=== PATIENT | female | born 1945 | race African-American/Black ===

== ENCOUNTER 2018-06-10 18:05 | Emergency (ER) | payer MEDICARE, MEDICAID ==
[~2018-06-10] VITALS: Ht 170.2 cm; Wt 91.0 kg
[2018-06-10] MEDS ORDERED: GABA-531 PO (18:25)
[2018-06-10 20:05] LABS: BASOPHILS % 1.5 % (0.0-2.0); EOSINOPHILS % 2.1 % (0.0-5.0); HEMATOCRIT. 39.3 % (36.0-48.0); LYMPHOCYTES % 42.3 % (20.0-50.0); MEAN CORPUSCULAR HEMOGLOBIN 30.3 pg (28.0-32.0); MEAN CORPUSCULAR VOLUME 91.7 fL (81.0-99.0); MEAN PLATELET VOLUME 8.3 fl (7.4-10.4); MONOCYTES % 11.6 % (2.0-8.0); NEUTROPHILS % 42.5 % (40.0-76.0); PLATELET 172 x1000/uL (130-400); RED BLOOD CELL COUNT 4.28 mill/uL (4.2-5.4); RED CELL DISTRIBUTION WIDTH 14.8 % (11.6-14.6)
[2018-06-10 20:07] LABS: CHLORIDE 109 mEq/L (98-107)
[2018-06-10 20:08] LABS: INR 1.1; PROTHROMBIN TIME 11.5 sec (9.4-11.6)
[2018-06-11 01:18] LABS: CLARITY URINE CLEAR (CLEAR); COLOR URINE YELLOW (YELLOW); KETONES URINE NEGATIVE (NEGATIVE); LEUKOCYTE ESTERASE URINE NEGATIVE (NEGATIVE); NITRITE URINE NEGATIVE (NEGATIVE); OCCULT BLOOD URINE NEGATIVE (NEGATIVE); PH URINE 5.5 (4.5-8.0); PROTEIN URINE NEGATIVE (NEGATIVE); SPECIFIC GRAVITY URINE 1.019 (1.005-1.030); UROBILINOGEN URINE 0.2 E.U./dL (0.2-1.0)
[2018-06-11 05:11] VITALS: BP 165/76
== END 2018-06-11 05:25 | disposition home or self-care (01) ==
LOC: ER 21:24
DX: R53.83 Other fatigue (principal); R06.02 Shortness of breath; R05 Cough; R30.0 Dysuria; J44.9 Chronic obstructive pulmonary disease, unspecified; J06.9 Acute upper respiratory infection, unspecified; I50.9 Heart failure, unspecified; R60.9 Edema, unspecified; I10 Essential (primary) hypertension
CPT/HCPCS: 36415; 71045; 80053; 81003; 83880; 84484; 85025; 85610; 87086; 93005; 99285

== ENCOUNTER 2022-07-09 12:52 | Inpatient (IN) | payer MEDICARE, MEDICAID ==
[~2022-07-09] VITALS: Ht 167.6 cm; Wt 93.7 kg
[2022-07-09] MEDS ORDERED: SODIUM CHLORIDE 0.9% 500 ML IV ONE (13:15)
[2022-07-09] MEDS ORDERED: ACETAMINOPHEN 325MG TABLET PO ONE (14:00)
[2022-07-09 14:06] LABS: BASOPHILS % 1.3 % (0.0-2.0); EOSINOPHILS % 2.8 % (0.0-5.0); HEMATOCRIT. 41.9 % (36.0-48.0); HEMOGLOBIN. 13.6 g/dL (12.0-16.0); MEAN CORPUSCULAR HEMOGLOBIN 30.7 pg (28.0-32.0); MEAN CORPUSCULAR VOLUME 94.7 fL (81.0-99.0); MEAN PLATELET VOLUME 8.5 fl (7.4-10.4); MONOCYTES % 8.8 % (2.0-8.0); NEUTROPHILS % 64.1 % (40.0-76.0); PLATELET 191 x1000/uL (130-400); RED BLOOD CELL COUNT 4.42 mill/uL (4.2-5.4); RED CELL DISTRIBUTION WIDTH 15.7 % (11.6-14.6)
[2022-07-09 14:18] LABS: CHLORIDE 110 mEq/L (98-107)
[2022-07-09] MEDS ORDERED: ENOXAPARIN 40MG/0.4ML SYR SUBCUT SCH (18:15)
[2022-07-09] MEDS ORDERED: ACETAMINOPHEN 325MG TABLET PO PRN (18:15)
[2022-07-09] MEDS: SODIUM CHLORIDE 0.9% 1,000 ML IV SCH ×2 (18:38→21:36)
[2022-07-09 20:00] VITALS: BP 144/100
[2022-07-09] MEDS ORDERED: ZOLPIDEM TARTRATE 5MG TABLET PO PRN (20:00)
[2022-07-09 20:30] VITALS: BP 144/100
[2022-07-09] MEDS: ENOXAPARIN 40MG/0.4ML SYR SUBCUT SCH (21:36)
[2022-07-09] MEDS ORDERED: ASPI-1497 PO (22:37)
[2022-07-09] MEDS ORDERED: CARV3.1242 PO (22:37)
[2022-07-09] MEDS ORDERED: CALC-1139 PO (22:37)
[2022-07-09] MEDS ORDERED: CARB-32 PO (22:37)
[2022-07-09] MEDS ORDERED: ASCO-339 PO (22:37)
[2022-07-09] MEDS ORDERED: GABA-532 PO (22:37)
[2022-07-09] MEDS ORDERED: LEVO25TA7 PO (22:37)
[2022-07-09] MEDS ORDERED: FURO-151 PO (22:37)
[2022-07-09 23:19] LABS: CREATINE KINASE 44 IU/L (26-192); CREATINE KINASE MB FRACTION < 1.0 ng/mL (0.5-3.6)
[2022-07-10] VITALS: BP 149/85
[2022-07-10 04:00] VITALS: BP 142/80
[2022-07-10 06:26] LABS: BASOPHILS % 0.7 % (0.0-2.0); EOSINOPHILS % 5.5 % (0.0-5.0); HEMATOCRIT. 35.5 % (36.0-48.0); HEMOGLOBIN. 11.5 g/dL (12.0-16.0); MEAN CORPUSCULAR HEMOGLOBIN 30.4 pg (28.0-32.0); MEAN CORPUSCULAR VOLUME 93.7 fL (81.0-99.0); MEAN PLATELET VOLUME 8.8 fl (7.4-10.4); NEUTROPHILS % 49.8 % (40.0-76.0); PLATELET 169 x1000/uL (130-400); RED BLOOD CELL COUNT 3.79 mill/uL (4.2-5.4); RED CELL DISTRIBUTION WIDTH 15.1 % (11.6-14.6)
[2022-07-10 06:46] LABS: CHLORIDE 113 mEq/L (98-107)
[2022-07-10 07:01] LABS: CREATINE KINASE 37 IU/L (26-192); CREATINE KINASE MB FRACTION < 1.0 ng/mL (0.5-3.6)
[2022-07-10 08:00] VITALS: BP 144/89
[2022-07-10] MEDS: SODIUM CHLORIDE 0.9% 1,000 ML IV SCH ×2 (10:20→21:29)
[2022-07-10] MEDS: HYDROCODONE/ACETAMINOPHEN 5/325MG TABLET PO PRN ×2 (11:27→20:20)
[2022-07-10 12:00] VITALS: BP 136/82
[2022-07-10 16:00] VITALS: BP 145/80
[2022-07-10 20:00] VITALS: BP 158/99
[2022-07-10] MEDS: GABAPENTIN 300MG CAPSULE PO SCH (20:19)
[2022-07-10] MEDS: ENOXAPARIN 40MG/0.4ML SYR SUBCUT SCH (20:20)
[2022-07-10] MEDS: CARVEDILOL 3.125 MG TABLET PO SCH (20:20)
[2022-07-11] VITALS (8 sets, daily range): BP systolic 110–179; BP diastolic 66–102
[2022-07-11] MEDS ORDERED: LEVOTHYROXINE SODIUM 25MCG TABLET PO SCH (06:40)
[2022-07-11 06:44] LABS: CHLORIDE 108 mEq/L (98-107)
[2022-07-11] MEDS: CARVEDILOL 3.125 MG TABLET PO SCH ×2 (08:52→16:43)
[2022-07-11] MEDS: HYDROCODONE/ACETAMINOPHEN 5/325MG TABLET PO PRN ×2 (08:56→16:43)
[2022-07-11] MEDS: SODIUM CHLORIDE 0.9% 1,000 ML IV SCH ×2 (11:49→18:45)
[2022-07-11] MEDS: GABAPENTIN 300MG CAPSULE PO SCH (21:04)
[2022-07-11] MEDS: ENOXAPARIN 40MG/0.4ML SYR SUBCUT SCH (21:05)
[2022-07-11] MEDS ORDERED: CLONIDINE 0.2MG TABLET PO NR (23:30)
== END 2022-07-12 00:17 | disposition home or self-care (01) | DRG 641 ==
LOC: ER 12:52 → EDBEDREQTM 16:14 → EDBEDREQ 16:14 → ENRESERV 18:29 → 7EST 21:21
PROVIDERS: ADMIT Internal Medicine; ATTEND Internal Medicine
PROC: 4A10X4Z Monitoring of Central Nervous Electrical Activity, External Approach (ICD-10-PCS; principal; 2022-07-11)
DX: E86.0 Dehydration (principal); I10 Essential (primary) hypertension; M19.90 Unspecified osteoarthritis, unspecified site; G62.9 Polyneuropathy, unspecified; E16.2 Hypoglycemia, unspecified; I73.9 Peripheral vascular disease, unspecified; R26.81 Unsteadiness on feet; Z86.73 Personal history of transient ischemic attack (TIA), and cerebral infarction without residual deficits; I95.1 Orthostatic hypotension
CPT/HCPCS: 36415; 71045; 80048; 80053; 82550; 82553; 82962; 83520; 83880; 84443; 84484; 85025; 93005; 93306; 97162; 99285; J1650; J7040